=== PATIENT | male | born 2005 | race Caucasian/White ===

== ENCOUNTER 2024-06-05 21:02 | Emergency (ER) | payer SELFPAY ==
[2024-06-05] MEDS ORDERED: Lorazepam 2 MG/ML VIAL ONE (21:37)
[2024-06-05] MEDS ORDERED: Glucagon 1 MG/ML KIT ONE (21:37)
== END 2024-06-05 23:49 | disposition home or self-care (01) ==
LOC: CSHERS 21:02
DX: T18.128A Food in esophagus causing other injury, initial encounter (principal)
CPT/HCPCS: 96374; 96375; J1611; J2060